=== PATIENT | male | born 1985 | race Caucasian/White ===

== ENCOUNTER 2019-08-30 20:08 | Emergency (ER) | payer OTHER ==
[~2019-08-30] VITALS: Ht 167.6 cm; Wt 107.0 kg
[2019-08-30] MEDS ORDERED: PREDNISONE 20MG TABLET PO ONE (22:15)
[2019-08-30] MEDS ORDERED: ACYCLOVIR 400 MG TABLET PO ONE (22:15)
[2019-08-30 23:03] LABS: BASOPHILS % 0.7 % (0.0-2.0); HEMATOCRIT. 46.6 % (42.0-52.0); HEMOGLOBIN. 15.7 g/dL (14.0-18.0); LYMPHOCYTES % 33.1 % (20.0-50.0); MEAN CORPUSCULAR HEMOGLOBIN 28.8 pg (28.0-32.0); MEAN CORPUSCULAR VOLUME 85.5 fL (80.0-94.0); MEAN PLATELET VOLUME 8.2 fl (7.4-10.4); MONOCYTES % 7.2 % (2.0-8.0); PLATELET 307 x1000/uL (130-400); RED BLOOD CELL COUNT 5.46 mill/uL (4.7-6.1); RED CELL DISTRIBUTION WIDTH 15.1 % (11.6-14.6)
[2019-08-30 23:13] LABS: CHLORIDE 106 mEq/L (98-107)
[2019-08-31 00:02] VITALS: BP 146/74
== END 2019-08-31 00:03 | disposition home or self-care (01) ==
LOC: ER 20:08
DX: G51.0 Bell's palsy (principal); F17.200 Nicotine dependence, unspecified, uncomplicated; F14.10 Cocaine abuse, uncomplicated; F15.10 Other stimulant abuse, uncomplicated
CPT/HCPCS: 36415; 80048; 85025; 93005; 99284; J7512

== ENCOUNTER 2020-12-11 16:56 | Emergency (ER) | payer MEDICAID ==
[~2020-12-11] VITALS: Ht 167.6 cm; Wt 129.0 kg
[2020-12-11] MEDS ORDERED: KETOROLAC 60MG/2ML VIAL IM ONE (17:45)
[2020-12-11] MEDS ORDERED: TETANUS, DIPHTHERIA, PERTUSSIS VAC/PF 0.5ML (>7YR OLD) IM ONE (17:45)
[2020-12-11] MEDS ORDERED: BACITRACIN ZINC OINT UDPKT TOP ONE (17:45)
[2020-12-11] MEDS ORDERED: NAPR-681 MT (18:32)
[2020-12-11] MEDS ORDERED: BO1 TP (18:34)
[2020-12-11 19:04] VITALS: BP 138/87
== END 2020-12-11 19:05 | disposition home or self-care (01) ==
LOC: ER 16:56
DX: M79.18 Myalgia, other site (principal); S50.312A Abrasion of left elbow, initial encounter; S90.512A Abrasion, left ankle, initial encounter; R00.0 Tachycardia, unspecified; Y08.89XA Assault by other specified means, initial encounter; Y93.9 Activity, unspecified; Z98.890 Other specified postprocedural states
CPT/HCPCS: 73080; 73590; 96372; 99284; J1885

== ENCOUNTER 2021-02-10 02:56 | Emergency (ER) | payer MEDICAID, OTHER ==
[~2021-02-10] VITALS: Ht 177.8 cm; Wt 126.4 kg
[~2021-02-10 02:56] MED LIST: BO1 TP; NAPR-681 MT
[2021-02-10] MEDS ORDERED: NALO4SPR BOTHNSTRLS (03:48)
[2021-02-10] MEDS ORDERED: NALOXONE HCL 0.4 MG/ML 1ML VIAL IM ONE (04:00)
[2021-02-10 05:28] VITALS: BP 127/76
== END 2021-02-10 05:30 | disposition home or self-care (01) ==
LOC: ER 02:56
DX: T40.2X1A Poisoning by other opioids, accidental (unintentional), initial encounter (principal); I49.9 Cardiac arrhythmia, unspecified; Y92.9 Unspecified place or not applicable
CPT/HCPCS: 93005; 96372; 99283; J2310

== ENCOUNTER 2024-06-14 09:12 | Emergency (ER) | payer OTHER ==
[~2024-06-14] VITALS: Ht 170.2 cm; Wt 100.0 kg
[~2024-06-14 09:12] MED LIST changes: +NALO4SPR BOTHNSTRLS
[2024-06-14 09:13] VITALS: BP 151/94; PULSE 110; RESP 16; TEMP 36.8; O2SAT 99
[2024-06-14] MEDS: SODIUM CHLORIDE 0.9% 1,000 ML IV ONE (09:45)
[2024-06-14] MEDS: ASPIRIN 325MG EC TABLET PO ONE (09:45)
[2024-06-14] MEDS: LORAZEPAM 2MG/ML INJ IV ONE (09:55)
[2024-06-14 09:59] LABS: BASOPHILS % 0.3 % (0.0-2.0); EOSINOPHILS % 1.1 % (0.0-5.0); HEMATOCRIT. 42.9 % (42.0-52.0); HEMOGLOBIN. 14.1 g/dL (14.0-18.0); LYMPHOCYTES % 25.3 % (20.0-50.0); MEAN CORPUSCULAR HEMOGLOBIN 27.8 pg (28.0-32.0); MEAN CORPUSCULAR HGB CONC 32.9 g/dL (31.0-37.0); MEAN CORPUSCULAR VOLUME 84.5 fL (80.0-94.0); MEAN PLATELET VOLUME 8.1 fl (7.4-10.4); MONOCYTES % 7.2 % (2.0-8.0); NEUTROPHILS % 66.1 % (40.0-76.0); PLATELET 244 x1000/uL (130-400); RED BLOOD CELL COUNT 5.07 mill/uL (4.7-6.1); RED CELL DISTRIBUTION WIDTH 14.7 % (11.6-14.6); WHITE BLOOD COUNT 5.7 x1000/uL (4.5-11.0)
[2024-06-14 10:45] LABS: CHLORIDE 106 mEq/L (98-107); POTASSIUM 3.9 mEq/L (3.5-5.1); SODIUM 138 mEq/L (136-145)
[2024-06-14 10:46] LABS: CARBON DIOXIDE 27 mEq/L (21-32)
[2024-06-14 10:47] LABS: CALCIUM 9.2 mg/dL (8.7-10.4)
[2024-06-14 10:51] LABS: GLUCOSE 99 mg/dL (70-105); UREA NITROGEN BLOOD 11 mg/dL (9-23)
[2024-06-14 10:52] LABS: TROPONIN I HIGH SENSITIVITY 4 ng/L (3.0-53)
[2024-06-14 11:34] LABS: CLARITY URINE CLEAR (CLEAR); COLOR URINE DARK YELLOW (YELLOW); GLUCOSE URINE NEGATIVE (NEGATIVE); KETONES URINE TRACE (NEGATIVE); LEUKOCYTE ESTERASE URINE TRACE (NEGATIVE); NITRITE URINE NEGATIVE (NEGATIVE); OCCULT BLOOD URINE NEGATIVE (NEGATIVE); PROTEIN URINE TRACE (NEGATIVE)
[2024-06-14 12:10] LABS: MUCUS URINE 3+ /lpf (NONE/TRACE); SQUAMOUS EPITHELIAL CELL URINE 2+ /lpf (RARE/1+)
[2024-06-14 12:11] LABS: RBC URINE 0-2 /hpf (0-2)
[2024-06-14 12:12] LABS: BACTERIA URINE 1+; WBC URINE 15-25 /hpf (0-2)
[2024-06-14 12:16] LABS: *AMPHETAMINES SCREEN URINE PRESUMPTIVE POSITIVE (NEGATIVE); *BARBITURATES SCREEN URINE NEGATIVE (NEGATIVE); *BENZODIAZEPINES SCREEN URINE NEGATIVE (NEGATIVE); *COCAINE SCREEN URINE NEGATIVE (NEGATIVE); CANNABINOID URINE SCREEN NEGATIVE (NEGATIVE); ECSTASY MDMA SCREEN URINE CONF.TEST INDICATED (NEGATIVE); METHADONE URINE SCREEN NEGATIVE (NEGATIVE); OPIATES URINE SCREEN NEGATIVE (NEGATIVE); PHENCYCLIDINE URINE SCREEN NEGATIVE (NEGATIVE)
[2024-06-14 12:16] LABS: TROPONIN I HIGH SENSITIVITY < 4 ng/L (3.0-53)
[2024-06-14] MEDS ORDERED: TOPUD MT (14:07)
[2024-06-14] MEDS ORDERED: IBUP-1523 MT (14:07)
== END 2024-06-14 14:16 | disposition home or self-care (01) ==
LOC: ER 09:12
DX: F15.20 Other stimulant dependence, uncomplicated (principal); R07.89 Other chest pain; E11.9 Type 2 diabetes mellitus without complications; Z79.899 Other long term (current) drug therapy; Z86.59 Personal history of other mental and behavioral disorders
CPT/HCPCS: 80305; 80048; 81003; 85025; 87086; 84484; 36415; 93005; 96361; 96374; 99284; J2060; J7030; Z7610 ×4